=== PATIENT | male | born 1970 | race Caucasian/White ===

== ENCOUNTER 2020-12-20 05:37 | Outpatient (CLI) | payer BC ==
[~2020-12-20] VITALS: Ht 177.8 cm; Wt 122.3 kg
== END 2020-12-20 16:51 ==
LOC: PREOP 05:37
PROVIDERS: ATTEND Surgery
DX: Z01.818 Encounter for other preprocedural examination (principal)

== ENCOUNTER 2020-12-27 07:01 | Day surgery (SDC) | payer BC ==
[~2020-12-27] VITALS: Ht 177.8 cm; Wt 122.3 kg
[2020-12-27] VITALS (10 sets, daily range): BP systolic 95–138; BP diastolic 54–92
[2020-12-27] MEDS ORDERED: CLINDAMYCIN 600 MG/50 ML IVPB 50 ML IV ONE (07:30)
[2020-12-27] MEDS ORDERED: CATHETER FLUSH 10 ML SYR IV PRN (07:45)
[2020-12-27] MEDS: LACTATED RINGERS 1,000 ML IV PRN ×2 (07:48→08:40)
--- NOTE | 2020-12-27 08:11 | Progress Note-Pre Operative ---
Pre-Operative Progress Note H&P Reviewed The H&P was reviewed, patient examined and no changes noted. Time Seen by Provider: 08:07 Date H&P Reviewed: Dec 27, 2020 Time H&P Reviewed: 08:08 Pre-Operative Diagnosis: back mass MADALYN MORALES DO Dec 27, 2020 08:11
--- NOTE | 2020-12-27 08:57 | Progress Note-Post Operative ---
Post-Operative Progess Note Surgeon (s)/Supervisor Inspection Department (s) Surgeon MADALYN MORALES DO Supervisor Inspection Department: CHYNA Blum Pre-Operative Diagnosis back mass Post-Operative Diagnosis same pending path Procedure & Operative Findings Date of Procedure 12/27/20 Procedure Performed/Findings Exc of back mass - subcutaneous, 5.8cm incision Anesthesia Type GET Estimated Blood Loss Estimated blood loss (mL): less than 5ml Specimens/Packing Specimens Removed 11 x 11 x 5cm mass MADALYN MORALES DO Dec 27, 2020 08:57
[2020-12-27] MEDS ORDERED: ACHD5005 PO (08:58)
--- NOTE | 2020-12-27 08:59 | Discharge Inst-Surgical ---
Discharge Inst-Surgical Depart Medication/Instructions New, Converted or Re-Newed RX: Transmitted to Pharmacy Patient Instructions Follow up Appt: Make appointment for 1 week. [phone] Instructions: No lifting greater than 20 pounds. No strenuous activity. May shower in 24 hours, no tub bath or soaking. Use incentive spirometer at home as directed. No Smoking Skin/Wound Care: May remove bandages in am. You need to leave the sutures in place and come in to office to have them removed. Symptoms to Report: Appetite Changes, Extremity Discoloration, Numbness/Tingling, Swelling Increased, Bleeding Excessive, Eyesight Changes, Pain Increased, Urine Color Change, Constipation(Persistent), Fever over 101 degree F, Pain/Pressure in chest, Urinating Difficulty, Cough Up/Vomit Blood, Heart Beat Irreg/Pounding, Pain/Pressure in jaw, Cramps in feet or legs, Lightheadedness, Pain/Pressure in shoulder, Diarrhea(Persistent), Memory Changes Suddenly, Questions/Concerns, Weight gain consecutive days, Dizziness/Fainting, Nausea/Vomiting, Shortness of Breath, Weight gain over 2 pounds If questions or concerns contact your physician Or seek help at emergency department. Activity Activity as Tolerated: Yes Activity Instructions: Avoid Stress to Incision Driving Instructions: No Driving/Refer to Dr. Guevara Discharge Diet: No Restrictions Diet After 24 Hours: Clear Liquid if Nauseous If Any Problems/Questions/Issu: Contact Your Physician, Go to Emergency Room Skin/Wound Care Infection Signs and Symptoms: Increased Redness, Foul Odor of Wound, Increased Drainage, Skin Itchy or Has a Rash, Increased Swelling, Temperature Above 101 F Bathing Instructions: Shower Stitches/[place]/Dermabond Dis: Care of Stitches MADALYN MORALSE DO Dec 27, 2020 08:59
[2020-12-27] MEDS ORDERED: SEVOFLURANE (ULTANE) 15 ML INHAL SOLN ONE (09:10)
--- NOTE | 2020-12-27 09:10 | Anesthesia-General Post-Op ---
General Patient Condition Mental Status/LOC: Same as Preop Cardiovascular: Satisfactory Nausea/Vomiting: Absent Respiratory: Satisfactory Pain: Controlled Complications: Absent Post Op Complications Complications None Follow Up Care/Instructions Patient Instructions None needed. Anesthesia/Patient Condition Patient Condition Patient is doing well, no complaints, stable vital signs, no apparent adverse anesthesia problems. No complications reported per nursing. RICKY FINN CRNA Dec 27, 2020 09:10
[2020-12-27] MEDS ORDERED: morphine INJ 10 MG/ML 1ML (SYR OR VIAL) IVP ONE (09:15)
[2020-12-27] MEDS ORDERED: MEPERIDINE (DEMEROL) INJ 50 MG/ML IVP ONE (09:15)
[2020-12-27] MEDS ORDERED: ONDANSETRON 4 MG/2 ML (SDV) Z0FRAN IVP PRN (09:15)
--- NOTE | 2020-12-27 15:24 | OPERATIVE REPORT ---
DATE OF SERVICE: 12/27/2020 PREOPERATIVE DIAGNOSIS: Back mass. POSTOPERATIVE DIAGNOSIS: Back mass, pending pathology. PROCEDURE: Excision of back mass, subcutaneous mass, 5.7 cm incision. SURGEON: Juliano Morales DO PUSHER OPERATOR: STEPHANIE Russlel. ANESTHESIA: General endotracheal tube. SPECIMEN: Back mass measuring 11 x 11 x 5 cm. BLOOD LOSS: Scant. FLUIDS: Per anesthesia. POSTOPERATIVE CONDITION: Stable. INDICATION FOR PROCEDURE: The patient is a 50-year-old male who has a mass on his back up between the shoulder blade just below the neck. It has been getting bigger bothering him and he wanted to get it removed. FINDINGS: The patient had a back mass removed, it was in the subcutaneous tissue just above the muscle and fascia measuring blade 11 x 11 x 5, removed and sent to pathology. PROCEDURE NOTE: After informed consent was obtained, the patient was brought to the operating room. He was intubated and placed on table in prone position. He was then sterilely prepped and draped in normal fashion. Local lidocaine was used to infiltrate above this mass as well as around it and regional block, then made an incision with #15 blade, carried down through the skin into the subcutaneous tissue, this incision measured 5.7 cm and then started dissecting around the mass with blunt dissection as well as with Bovie electrocautery, going down all the way to just above the fascia and above the muscle, removing this large piece of fat, some of it was able to easily shell out, some of it had to be cut out with Bovie electrocautery. This measured 11 x 11 x 5 and removed. There was some minimal bleeding inside. This was contained with Bovie electrocautery for hemostasis. I then copiously irrigated with normal saline, suctioned this out, looked around and at this point, I then elected to close the incision, closing with a 2-0 Prolene three vertical mattress sutures and then closed with four simple interrupted sutures to close the skin. Area was cleaned and dried, pressure dressing placed. The patient tolerated the procedure. Sponge, instrument and needle count correct at the end of the case. Job ID: [id number] DocumentID: [id number] Dictated Date: 12/27/2020 12:46:57 Bread Stacker Date: 12/27/2020 15:23:17 Dictated By: JULIANO MORALES DO [facility]
== END 2020-12-27 10:58 | disposition home or self-care (01) ==
LOC: SDC 07:01
PROVIDERS: ATTEND Surgery
DX: D17.1 Benign lipomatous neoplasm of skin and subcutaneous tissue of trunk (principal); E66.9 Obesity, unspecified; Z68.38 Body mass index [BMI] 38.0-38.9, adult; Z79.899 Other long term (current) drug therapy
CPT/HCPCS: 87081